=== PATIENT | female | born 1980 | race Caucasian/White ===

== ENCOUNTER 2024-04-02 08:25 | Day surgery (SDC) | payer BC ==
[2024-04-02] MEDS: Lactated Ringers 1,000 ML IV SCH (09:00)
[2024-04-02] MEDS ORDERED: Propofol 200 MG/20 ML SDV ONE ×2 (09:45)
[2024-04-02] MEDS ORDERED: Ondansetron 4 MG/2 ML SDV ONE (09:45)
[2024-04-02] MEDS ORDERED: fentaNYL 50 MCG/ML SDV ONE ×2 (09:45)
[2024-04-02] MEDS ORDERED: Midazolam 1 MG/ML 2 ML SDV ONE (09:45)
[2024-04-02] MEDS ORDERED: Ketamine 200 MG/20 ML MDV ONE (09:45)
[2024-04-02 11:11] VITALS: BP 137/80; PULSE 88
== END 2024-04-02 11:15 | disposition home or self-care (01) ==
LOC: CC.SDS 08:25
PROVIDERS: ATTEND Family Medicine
DX: D12.5 Benign neoplasm of sigmoid colon (principal); K52.9 Noninfective gastroenteritis and colitis, unspecified
CPT/HCPCS: 00811; J2250; J2405; J2704; J3010; J3490; J7120